=== PATIENT | male | born 1980 | race Two or more races ===

== ENCOUNTER 2021-12-19 12:47 | Inpatient (IN) | payer MEDICAID ==
[2021-12-19] VITALS (9 sets, daily range): BP systolic 130–162; BP diastolic 66–99
[~2021-12-19] VITALS: Ht 165.1 cm; Wt 70.8 kg
--- NOTE | 2021-12-19 13:05 | NUR ---
RECEIVED PT CAME FROM HOME ACCOMMPANY BY KRZYSZTOF C/O PAIN ON lt shoulder for 1 day dineses H FALL
--- NOTE | 2021-12-19 13:23 | NUR ---
BLOOD DROW BY LAB TAC
[2021-12-19 13:38] LABS: BASOPHILS % (AUTO) 0.1 % (0.0-2.0); HEMOGLOBIN 15.2 g/dL (13.5-17.5); MEAN CORPUSCULAR HGB CONC 33 g/dl (31.0-36.0); NEUTROPHILS # (AUTO) 10.7 K/uL (1.8-8.9)
[2021-12-19 13:48] LABS: CARBON DIOXIDE 29 mmol/L (21-32); CHLORIDE 103 mmol/L (98-107); CREATININE 0.9 mg/dL (0.6-1.3); GLUCOSE 89 mg/dL (74-106); POTASSIUM 4.4 mmol/L (3.5-5.1); SODIUM SERUM 138 mmol/L (136-145); UREA NITROGEN, BLOOD 24 mg/dL (7-18)
--- NOTE | 2021-12-19 13:48 | NUR ---
CERTIFIED TECHNICIAN STATED THAT PT IS NEGATIVE FOR CLOT
[2021-12-19 13:50] LABS: SERUM AMMONIA 22 umol/L (11-32)
[2021-12-19] MEDS ORDERED: KETOROLAC TROMETHAMINE 15 MG/ML VIAL ONE (13:53)
[2021-12-19 13:54] LABS: ALANINE AMINOTRANSFERASE 148 U/L (12-78); ALCOHOL, BLOOD < 3 mg/dL (0-0); ALKALINE PHOSPHATASE 54 U/L (46-116); ASPARTATE AMINOTRANSFERASE 335 U/L (15-37); BILIRUBIN,DIRECT 0.1 mg/dL (0.0-0.2); BILIRUBIN,TOTAL 0.6 mg/dL (0.2-1.0); TOTAL PROTEIN, SERUM 7.8 g/dL (6.4-8.2)
[2021-12-19] MEDS ORDERED: KETOROLAC TROMETHAMINE INJ 30 MG/ML VIAL IM ONE (14:00)
--- NOTE | 2021-12-19 14:00 | NUR ---
TO CT SCAN VIA SOPHIA
[2021-12-19 14:01] LABS: ALBUMIN 3.5 g/dL (3.4-5.0)
[2021-12-19 14:16] LABS: EOSINOPHILS % (AUTO) 0.3 % (0.0-6.0); HEMATOCRIT 47 % (39-51); LYMPHOCYTES # (AUTO) 1.1 K/uL (0.8-4.8); LYMPHOCYTES % (AUTO) 8.2 % (20.0-44.0); MEAN CORPUSCULAR VOLUME 90 fL (80-96); MONOCYTES # (AUTO) 1.3 K/uL (0.1-1.30); MONOCYTES % (AUTO) 9.7 % (2.0-12.0); NEUTROPHILS % (AUTO) 81.7 % (43.0-81.0); PLATELET COUNT (AUTO) 256 K/uL (150-450); RED BLOOD CELL COUNT(AUTO) 5.19 MIL/uL (4.5-6.0); WHITE BLOOD COUNT (AUTO) 13.1 K/uL (4.3-11.0)
[2021-12-19 14:25] LABS: THYROID STIMULATING HORMONE 2.063 uIU/mL (0.358-3.74)
[2021-12-19] MEDS ORDERED: IV NS 0.9% 1,000 ML IV ONE (14:30)
--- NOTE | 2021-12-19 14:45 | NUR ---
[facility] CALLED PUBLIC INFORMATION OFFICER PAGED.
--- NOTE | 2021-12-19 15:54 | NUR ---
SWAB FOR COVID19 SENT TO LAB
--- NOTE | 2021-12-19 16:00 | NUR ---
HOSPITALIST AT BED SIDE SEE AND EXAMIN PT
--- NOTE | 2021-12-19 16:03 | NUR ---
Silvano lafleur in FRIEDA - 12/19/21 at 1604 by KARELY MATT MCDONNELL DONE SENT TO LAB
--- NOTE | 2021-12-19 16:40 | NUR ---
ROOM 323-2
--- NOTE | 2021-12-19 17:10 | NUR ---
PT ABLE SWALLOW NO NURO DIFFISITY NO WEEKNESS
--- NOTE | 2021-12-19 18:23 | NUR ---
HAND OFF REYES JAY RN TO ROOM 323-2
[2021-12-19] MEDS ORDERED: ONDANSETRON HCL/PF 4 MG/2 ML VIAL IVP PRN (18:30)
[2021-12-19] MEDS ORDERED: Z GUARD REMEDY 4 OZ OINT TP PRN (18:30)
[2021-12-19] MEDS ORDERED: MAG HYDROX/AL HYDROX/SIMETH 30 ML UDC PO PRN (18:30)
[2021-12-19] MEDS ORDERED: MAGNESIUM HYDROXIDE 30 ML UDC PO PRN (18:30)
[2021-12-19] MEDS ORDERED: ACETAMINOPHEN 325 MG TABLET PO PRN (18:30)
[2021-12-19] MEDS ORDERED: ZOLPIDEM TARTRATE 5 MG TABLET PO PRN (18:30)
--- NOTE | 2021-12-19 19:20 | NUR ---
RN NOTE PATIENT RECEIVED FROM ER VIA GURNEY ACCOMPANIED BY 2 NURSES, REPORT GIVEN BY PRISCILLA. PATIENT TRNASFERRED TO BED AND COMFORT MEASURES PROVIDED. PATIENT IS ALERT AND ORIENTED X 3. WITH SOME TREMORS/SHAKING NOTED. PATIENT ON ROOM AIR SATURATING AT 99% WITH NO SIGNS OF RESPIRATORY DISTRESS. PATIENT NOTED TO HAVE ORDER FOR TRANSFER TO ICU. FACILITATED IMMEDIATE TRANSFER VIA BED ACOOMPANIED BY 3 NURSES. KEPT ON OXYGEN AT 3LPM DURING TRANSFER. REPORT GIVEN TO RN BORIS AND CLAUDIO. NO APPARENT DISTRESS NOTED DURING TRANSFER. ENDORSED ACCORDINGLY.
--- NOTE | 2021-12-19 19:20 | NUR ---
ICU/UNIVERSITY SERVICES PROGRAM ASSOCIATE PT CAME FROM [facility] FOR CLOSE MONITORING.PT WAS AN ADMIT TO @5280
[2021-12-19] MEDS: IV 1/2NS 1000 ML 1,000 ML IV PRN ×2 (20:00→22:58)
--- NOTE | 2021-12-19 20:15 | NUR ---
ICU/FILING OR REGISTRY CLERK NOTICED PT HAS SOME SLURRED SPEECH, ALSO RIGHT EYE IS SLIGHTLY DILATED AND SLUGGISH THAN THE LEFT EYE WHICH IS BRISK.
--- NOTE | 2021-12-19 21:30 | NUR ---
ICU/WOMEN'S MINISTRY DIRECTOR CHARGE NURSE GOT ORDER FOR NORCO BECAUSE PT COMPLAINED OF RIGHT LOWER BACK PAIN. THIS WAS GIVEN TO HIM, WHICH IS RATED AT 7/10
[2021-12-19] MEDS: HYDROCODONE/APAP 10/325MG TABLET PO PRN (21:47)
--- NOTE | 2021-12-19 22:30 | NUR ---
ICU/WETLAND SCIENTIST PT'S FRIEND CAME IN ASKING TO SEE PT'S LABS, EXPLAINED THAT UNABLE SHOW EVERYTHING. THAT SHE WOULD HAVE TO GO TO MEDICAL RECORDS. THEN PT'S FRIEND SAID TO REMOVE LEFT IJ AND PUT THIS SOMEWHERE ELSE. IT WAS EXPLAINED THAT UNABLE TO DO THIS BECAUSE PT HAS BAD VEINS. THEN PT'S FRIEND SAID THAT PT NEEDS TO EAT, EXPLAINED UNABLE TO DO THIS SINCE PT IS SLEEPY AND THERE IS A REAL POSSIBILITY OF ASPIRATION. THIS PERSON WAS ALSO INFORMED SHE COULD NOT STAY OVER NIGHT, SHE SAID WHY NOT SINCE THIS IS ICU. SHE WAS TOLD WHEN VISITING HOURS ARE.
[2021-12-20] VITALS (37 sets, daily range): BP systolic 116–163; BP diastolic 71–113
[2021-12-20] MEDS: IV 1/2NS 1000 ML 1,000 ML IV PRN ×2 (03:51→14:36)
--- NOTE | 2021-12-20 04:30 | NUR ---
ICU/ACTUARIAL DIRECTOR PT COMPLAINED OF RIGHT LOWER BACK PAIN. GAVE NORCO 1 TAB . PAIN RATED 7/10
[2021-12-20] MEDS: HYDROCODONE/APAP 10/325MG TABLET PO PRN ×3 (04:35→20:45)
[2021-12-20 04:43] LABS: BASOPHILS % (AUTO) 0.3 % (0.0-2.0); EOSINOPHILS % (AUTO) 0.7 % (0.0-6.0); HEMATOCRIT 43 % (39-51); HEMOGLOBIN 14.5 g/dL (13.5-17.5); LYMPHOCYTES # (AUTO) 0.9 K/uL (0.8-4.8); LYMPHOCYTES % (AUTO) 8.5 % (20.0-44.0); MEAN CORPUSCULAR HGB CONC 34 g/dl (31.0-36.0); MEAN CORPUSCULAR VOLUME 89 fL (80-96); MONOCYTES % (AUTO) 9.5 % (2.0-12.0); PLATELET COUNT (AUTO) 254 K/uL (150-450); RED BLOOD CELL COUNT(AUTO) 4.88 MIL/uL (4.5-6.0); WHITE BLOOD COUNT (AUTO) 11.1 K/uL (4.3-11.0)
[2021-12-20 05:00] LABS: ALBUMIN 2.9 g/dL (3.4-5.0); BILIRUBIN,DIRECT 0.2 mg/dL (0.0-0.2); BILIRUBIN,TOTAL 0.7 mg/dL (0.2-1.0); CALCIUM, SERUM 8.4 mg/dL (8.5-10.1); CREATININE 0.9 mg/dL (0.6-1.3); PHOSPHORUS 2.7 mg/dL (2.5-4.9); POTASSIUM 4.5 mmol/L (3.5-5.1); TOTAL PROTEIN, SERUM 6.7 g/dL (6.4-8.2)
--- NOTE | 2021-12-20 07:20 | NUR ---
RN OPENING NOTES: DISTRICT PLANT SUPERINTENDENT OPENING NOTE: RECEIVED PT. IN BED, ASLEEP BUT EASILY AROUSABL, AOX3-4, NO COMPLAINTS OF PAIN/DISCOMFORT AT THIS TIME. PT. O2 VIA NASAL CANULA 2L/MIN. SATURATING AT 98% AT THIS TIME. GEAR NICKER READS NSR WITH HR OF 98 BPM. PT. IV ACCESS ON LEFT IJ, GAUGE 18 ON 03/16 NS RUNNING AT 125 ML/HR, AND RIGHT WRIST GAUGE 20.PATENT WITH NO S/S OF INFILTRATION. IV DRESSING C/D/I. SAFETY MEASURES IN PLACE: BED IN LOWEST AND LOCKED POSITION, HOB ELEVATED AT 30 DEGREES, BED ALARM ON, CALL LIGHT WITHIN REACH. WILL CONTINUE TO MONITOR PT. FOR RICKIE
[2021-12-20] MEDS: PANTOPRAZOLE 40 MG TABLET.DR PO SCH (07:47)
--- NOTE | 2021-12-20 07:55 | NUR ---
RN NOTES: ASSISTED PT TO EAT HIS BREAKFAST CONSUMED 90% OF HIS TRAY WITHOUT ANY PROBLEMS SWALLOWING HIS FOOD
[2021-12-20] MEDS: NICOTINE PATCH (21MG) 21 MG PATCH.TD24 TD SCH (08:32)
--- NOTE | 2021-12-20 10:18 | NUR ---
RN NOTES: PT TRANSFERRED FROM [facility], WITH RN RAFFY PT ASLEEP N SIMPLE MASK , OXYGEN 8LPM, O2 SAT 93%, BP 103/45,PULSE 83,RR 18 WILL MONITOR
[2021-12-20] MEDS ORDERED: GADOTERATE MEGLUMINE 10 MMOL/20 ML VIAL IV ONE (17:37)
--- NOTE | 2021-12-20 19:22 | NUR ---
BROADCAST PROGRAM DIRECTOR CLOSING NOTES: BROADCAST PROGRAM DIRECTOR CLOSING NOTE: PT. REMAINS IN BED, AWAKE, AOX3, NO COMPLAINTS OF PAIN/DISCOMFORT AT THIS TIME. NOW ON HIFLO 02 VIA NASAL CANNULA WITH 2 L/MIN . TOLERATING WELL. SATURATING AT 97% AT THIS TIME. PT.PRECISION INSTRUMENT MAKER AND REPAIRER READS NSR WITH HR OF 92 BPM. PT VOIDEDX 4 USING URINAL X,3 NORMAL BOWEL MOVEMENT USING HIS BEDSIDE COMMODE THIS SHIFT. IV ACCESS ON R WRIST MIDLINE, ON TKO, PATENT WITH NO S/S OF INFILTRATION. IV DRESSING C/D/I. SAFETY MEASURES MAINTAINED: BED IN LOWEST AND LOCKED POSITION, HOB ELEVATED AT 30 DEGREES, BED ALARM ON, CALL LIGHT WITHIN REACH. NDORSED CONTINUITY OF CARE TO INSULATION CUPOLA OPERATOR RN.
--- NOTE | 2021-12-20 21:15 | NUR ---
ICU/CASE OPERATOR PT COMPLAINED OF RIGHT LOWER BACK PAIN. GAVE NORCO 1 TAB . PAIN RATED 8/10. WILL MONITOR THIS PT AND HIS PAIN. CALL LIGHT WITHIN REACH.
--- NOTE | 2021-12-20 23:31 | NUR ---
ICU/OPERATIONS SUPERVISOR 2ND SHIFT SOCIAL SERVICE IS PLACED FOR THIS PT. 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 SOCIAL SERVICE CONSULT PLACED FOR THIS PT BECAUSE PT WOULD LIKE DRUG REHAB AND POSSIBLE BE HOMELESS IF PT CAN NOT FIND WORK.
[2021-12-21] VITALS (19 sets, daily range): BP systolic 114–159; BP diastolic 51–100
--- NOTE | 2021-12-21 02:15 | NUR ---
ICU/VEHICLE BODY BUILDER PT REQUESTED TO HAVE PAIN MEDICATION HOWEVER IT'S NOT DUE UNTIL 0300. ALSO NOTICED THAT IV IS BEEPING, IV SITE IS LEAKING, FLUSHED THIS AND PT WAS UPSET. LET CHARGE NURSE KNOW THAT IV IS NOT GOOD.
[2021-12-21 04:17] LABS: BASOPHILS % (AUTO) 0.2 % (0.0-2.0); EOSINOPHILS % (AUTO) 1.9 % (0.0-6.0); HEMATOCRIT 46 % (39-51); HEMOGLOBIN 15.3 g/dL (13.5-17.5); LYMPHOCYTES # (AUTO) 0.9 K/uL (0.8-4.8); LYMPHOCYTES % (AUTO) 10.6 % (20.0-44.0); MEAN CORPUSCULAR HGB CONC 33 g/dl (31.0-36.0); MEAN CORPUSCULAR VOLUME 89 fL (80-96); MONOCYTES # (AUTO) 0.8 K/uL (0.1-1.30); MONOCYTES % (AUTO) 9.5 % (2.0-12.0); NEUTROPHILS # (AUTO) 6.5 K/uL (1.8-8.9); NEUTROPHILS % (AUTO) 77.8 % (43.0-81.0); PLATELET COUNT (AUTO) 287 K/uL (150-450); RED BLOOD CELL COUNT(AUTO) 5.18 MIL/uL (4.5-6.0); WHITE BLOOD COUNT (AUTO) 8.4 K/uL (4.3-11.0)
[2021-12-21 04:35] LABS: CREATININE 0.8 mg/dL (0.6-1.3); MAGNESIUM 1.8 mg/dL (1.8-2.4); POTASSIUM 3.8 mmol/L (3.5-5.1)
[2021-12-21] MEDS: HYDROCODONE/APAP 10/325MG TABLET PO PRN ×3 (04:36→20:19)
[2021-12-21 04:41] LABS: ALBUMIN 2.8 g/dL (3.4-5.0); BILIRUBIN,DIRECT 0.1 mg/dL (0.0-0.2); BILIRUBIN,TOTAL 0.3 mg/dL (0.2-1.0); TOTAL PROTEIN, SERUM 6.6 g/dL (6.4-8.2)
--- NOTE | 2021-12-21 04:45 | NUR ---
ICU/BULLET SLUGS INSPECTOR PT COMPLAINED OF RIGHT LOWER BACK PAIN. GAVE NORCO 1 TAB . PAIN RATED 7/10. WILL MONITOR THIS PT AND HIS PAIN. CALL LIGHT WITHIN REACH.
[2021-12-21] MEDS: NICOTINE PATCH (21MG) 21 MG PATCH.TD24 TD SCH (08:19)
[2021-12-21] MEDS: PANTOPRAZOLE 40 MG TABLET.DR PO SCH (08:19)
--- NOTE | 2021-12-21 13:52 | NUR ---
RELAYED TO DR. GARNETT CRITICAL TROPONIN [id number]. NO NEW ORDER AT THIS TIME.
--- NOTE | 2021-12-21 15:00 | NUR ---
RN NOTE PATIENT WAS TRANSFERRED TO UNIT FROM ICU VIA GURNEY WITH NO SIGN OF DISTRESS. REPORT RECEIVED FORM ICU NURSE. V/S TAKEN, STABLE, RECORDED. PATIENT WAS ORIENTED TO ROOM SETUP AND EDUCATED ON THE USE OF THE CALL LIGHT. PATIENT AWAKE IN BED RESTING. A/O X4. NO PAIN NOTED AT THIS TIME. ON ROOM AIR, NO DISTRESS OR SHORTNESS OF BREATH NOTED. IV ACCESS ALICIA MIDLINE INTACT, PATENT AND FLUSHING WELL, 1/2 NS @ 125ML/HR. PATIENT WITH EXTERNAL FERN PICKER WITH CURRENT READING OF SR AND HR OF 90, NO CARDIAC DISTRESS NOTED. FALL AND SAFETY MEASURES IN PLACE, BED ALARM ON, BED IN LOW AND LOCK POSITION, CALL LIGHT AND TABLE WITHIN EASY REACH, SIDE RAILS UP X2. WILL CONTINUE TO MONITOR.
--- NOTE | 2021-12-21 15:45 | NUR ---
EKG DONE AND RESULTED; NORMAL EKG ;CHARGE NURSE AWARE.
--- NOTE | 2021-12-21 16:32 | NUR ---
PATIENT WAS TRANSFERRED TO [facility] 326 PER ORDER/PROTOCOL; STABLE CONDITION, VS FOLLOWS: HR 97 RR 16 99%O2SAT BP 136/78
--- NOTE | 2021-12-21 18:47 | NUR ---
RN CLOSING NOTE PATIENT AWAKE IN BED RESTING. A/O X4. NO PAIN NOTED AT THIS TIME. ON ROOM AIR, NO DISTRESS OR SHORTNESS OF BREATH NOTED. IV ACCESS ALICIA MIDLINE INTACT, PATENT AND FLUSHING WELL, 1/2 NS @ 125ML/HR. PATIENT WITH EXTERNAL SQL REPORT WRITER WITH CURRENT READING OF SR AND HR OF 88, NO CARDIAC DISTRESS NOTED. FALL AND SAFETY MEASURES IN PLACE, BED ALARM ON, BED IN LOW AND LOCK POSITION, CALL LIGHT AND TABLE WITHIN EASY REACH, SIDE RAILS UP X2. WILL ENDORSE TO LEGAL RESEARCH ANALYST.
--- NOTE | 2021-12-21 19:30 | NUR ---
STAFF NURSE OPENING NOTES RECEIVED PATIENT LYING IN BED AWAKE. A/O X3, SOME WORDS SOUND GARBLED WHEN PATIENT SPEAKS. BREATHING EVEN AND NON-LABORED ON ROOM AIR, SATURATING AT 100%. NOT IN APPARENT DISTRESS. C/O LEFT SHOULDER AND RIGHT LOWER BACK PAIN -09/21. HAS RIGHT WRIST IV ACCESS #20G, SALINE LOCKED AND LEFT UPPER ARM MIDLINE #18G WITH 1/2 NS RUNNING AT 125 ML/HR. NO S/S OF INFILTRATION NOTED. SAFETY MEASURES IN PLACE: BED LOCKED AND IN LOWEST POSITION, SIDE RAILS UP X2, CALL LIGHT WITHIN REACH. WILL CONTINUE POC. Addendum: 12/21/21 at 2211 by August KAROLINE BAER ON TELE MONITOR READING SINUS RHYTHM WITH BBB AT 82 BPM.
--- NOTE | 2021-12-21 20:05 | NUR ---
TRUST ADVISOR NOTES RECEIVED CALL FROM LAB, TROPONIN RESULT IS 121. ADALBERTO SUB ARC OPERATOR AWARE, NO NEW ORDER.
[2021-12-21] MEDS: LEVETIRACETAM SOL (5 ML) 100 MG/ML UDC PO SCH (20:17)
[2021-12-22] VITALS: BP 139/85
[2021-12-22] MEDS: HYDROCODONE/APAP 10/325MG TABLET PO PRN ×2 (02:19→08:36)
--- NOTE | 2021-12-22 02:35 | NUR ---
CHAIR AND COUCH MAKER NOTES PATIENT C/O LEFT SHOULDER PAIN. ADMINISTER PRN NORCO. WILL CONTINUE PAIN MANAGEMENT.
[2021-12-22 04:00] VITALS: BP 121/73
[2021-12-22] MEDS: IV 1/2NS 1000 ML 1,000 ML IV PRN (04:57)
[2021-12-22 06:14] LABS: BASOPHILS % (AUTO) 0.3 % (0.0-2.0); EOSINOPHILS % (AUTO) 1.3 % (0.0-6.0); HEMATOCRIT 45 % (39-51); HEMOGLOBIN 15.4 g/dL (13.5-17.5); LYMPHOCYTES # (AUTO) 1.1 K/uL (0.8-4.8); LYMPHOCYTES % (AUTO) 10.4 % (20.0-44.0); MEAN CORPUSCULAR HGB CONC 34 g/dl (31.0-36.0); MEAN CORPUSCULAR VOLUME 88 fL (80-96); MONOCYTES # (AUTO) 1.2 K/uL (0.1-1.30); MONOCYTES % (AUTO) 10.8 % (2.0-12.0); NEUTROPHILS # (AUTO) 8.4 K/uL (1.8-8.9); NEUTROPHILS % (AUTO) 77.2 % (43.0-81.0); PLATELET COUNT (AUTO) 303 K/uL (150-450); RED BLOOD CELL COUNT(AUTO) 5.13 MIL/uL (4.5-6.0); WHITE BLOOD COUNT (AUTO) 10.9 K/uL (4.3-11.0)
--- NOTE | 2021-12-22 06:43 | NUR ---
TERMITE RENEWAL INSPECTOR CLOSING NOTES PATIENT LYING IN BED ASLEEP AND EASY TO AROUSE. A/O X3, FORGETFUL AND HAS SLURRED SPEECH. NO SOB OR NOTED, TOLERATING ROOM AIR WELL. AFEBRILE. DENIES PAIN AT THIS TIME. ON TELE MONITOR READING SINUS RHYTHM AT 81 BPM. HAS RIGHT HAND IV ACCESS #20G WITH 1/2 NS RUNNING AT 125 ML/HR. INTACT, PATENT AND FLUSHING. ALL DUE MEDS GIVEN AND NEEDS ATTENDED. SAFETY MEASURES MAINTAINED. WILL ENDORSE TO NEXT SHIFT FOR RICKIE.
[2021-12-22 06:56] LABS: CALCIUM, SERUM 9.1 mg/dL (8.5-10.1); CREATININE 0.8 mg/dL (0.6-1.3); MAGNESIUM 1.7 mg/dL (1.8-2.4); PHOSPHORUS 3.4 mg/dL (2.5-4.9); POTASSIUM 3.8 mmol/L (3.5-5.1)
[2021-12-22 07:14] LABS: ALBUMIN 2.9 g/dL (3.4-5.0); BILIRUBIN,DIRECT 0.1 mg/dL (0.0-0.2); BILIRUBIN,TOTAL 0.5 mg/dL (0.2-1.0); TOTAL PROTEIN, SERUM 6.9 g/dL (6.4-8.2)
[2021-12-22 08:00] VITALS: BP 131/73
--- NOTE | 2021-12-22 08:00 | NUR ---
FUNDRAISER OPENING NOTES: RECEIVED PT IN BED, ASLEEP BUT EASILY AWAKEN. A/O X3, ABLE TO MAKE NEEDS KNOWN BUT FORGETFUL AND HAS SLURRED SPEECH. NO S/S OF SOB NOTED, TOLERATING ROOM AIR WELL. DENIES PAIN AT THIS TIME. ON TELE MONITOR READING SINUS RHYTHM AT 93 BPM. HAS RIGHT HAND IV ACCESS #20G WITH 1/2 NS RUNNING AT 125 ML/HR. INTACT, PATENT AND FLUSHING. SAFETY MEASURES MAINTAINED, HOB ELEVATED, LOCKED AT LOWEST POSITION, SIDE RAILS X2, CALL LIGHT AND TABLE WITHIN REACH; WILL CONT WITH PLAN OF CARE DURING SHIFT.
[2021-12-22] MEDS: NICOTINE PATCH (21MG) 21 MG PATCH.TD24 TD SCH ×2 (08:36→09:00)
[2021-12-22] MEDS: LEVETIRACETAM SOL (5 ML) 100 MG/ML UDC PO SCH (08:36)
[2021-12-22] MEDS: PANTOPRAZOLE 40 MG TABLET.DR PO SCH (08:41)
[2021-12-22] MEDS ORDERED: ASPIRIN 81 MG TAB.CHEW PO SCH (09:00)
[2021-12-22] MEDS: Magnesium 1GM/D5W 100ML PREMIX 100 ML IV SCH ×2 (09:17→10:20)
[2021-12-22 10:12] LABS: CHOLESTEROL 134 mg/dL (<200); HDL CHOLESTEROL 43 mg/dL (40-60); LDL 79 mg/dL (0-99); TRIGLYCERIDES 78 mg/dL (30-150)
[2021-12-22 12:00] VITALS: BP 131/80
--- NOTE | 2021-12-22 12:40 | NUR ---
Dining Host Consult LORNE consult requested for support with disability application and resources. Pt. is a 41 y.o. male who was admitted for subarachnoid rhabdo. LORNE met with pt. at bedside. The pt. appeared alert and oriented x4. Pt. made eye contact and was engaged during assessment. The pt. had a depressed mood and flat affect. SW assessed for suicidal and homicidal ideation in which pt. denied plan, means,and intent. During assessment, pt stated he was living in a motel and did have money to pay for it and was requesting homelessness support. Pt. reported he was going to be picked up by his friend and was going to go home with him. Pt. is not independent ambulation but has a walker for assistance. Pt is not receiving financial assistance but inquired re [employer]. Pt. was requesting support with disability application. DC plan: When asked about pt.s plans after being discharged pt. stated he did not have a place to stay. LORNE offered skilled nursing placement in which pt. was agreeable. LORNE provided pt. with instructions on how to apply for disability insurance and calfresh, homeless resources and mental health resources which pt. accepted. LORNE provided pt. with a TAP card and directions to [facility] ([address] [place] [address], TEL: ) Pt. signed the homeless waiver and was placed in his chart. LORNE discussed discharge plan with nurse and she was agreeable. Checklist for Online Adult Disability Application The information below will help you gather the information you may need to create a [employer] Social Security account and complete the online Disability application. We recommend you print this page to use while gathering your information. Create a [employer] Social Security Account You are required to login to your existing [employer] Social Security account, or attempt to create one. To create an account, we will ask you a series of identity questions for verification. You may want to have certain items on hand to be prepared for additional security questions, such as, but not limited to: mobile phone (for the purpose of receiving texts and emails), credit card, W-2, and tax forms. File for Benefits Online The Information You Need Date and Place of If you were born outside the [place] or its territories: Name of your country at the time of your (it may have a different name now) Permanent Resident Card number (if you are not a U.S[place] citizen) Marriage and Divorce Name of current spouse, name of prior spouse (if the marriage lasted more than 10 years or ended in ) Spouse(s) date of and Social Security number (optional) Beginning and ending dates of marriage(s), place of marriage(s) (city, state or country, if outside the [place] Names and Dates of of Children Who: Became disabled prior to age 22, or Are under age 18 and are unmarried, or Are aged 18 to 19 and still attending secondary school real time analyst [place]. Service Type of duty and branch, service period dates Employer Details for Current Year and Prior 2 Years (not self-employment) View your Social Security Statement online at [email or web address] Employer name, employment start and end dates, total earnings (wages, tips, etc.) Self-Employment Details for Current Year and Prior 2 Years View your Social Security Statement online at [email or web address] Business type and total net income Direct Deposit Domestic bank ([place]) Account type and number Bank routing number Direct Deposit International bank (non-USA) International Direct Deposit (IDD) bank country Bank name, bank code, and currency Account type and number, branch/transit number Alternate Contact Name, address, and phone number of someone we can contact who knows about your medical condition(s) and can help you with your claim List of your Medical Conditions Information About Doctors, Healthcare Professionals, Hospitals, and Clinics Names, addresses, phone numbers, patient ID numbers, and dates of examinations and treatments Names and dates of medical tests you have had and who sent you for them Names of medications (prescriptions and non-prescriptions), reason for medication, and who prescribed them Information About Other Medical Records Vocational rehabilitation services, workers compensation, public welfare, group home/intermediate, an attorney lawyer, or another place Job History Date your medical condition began to affect your ability to work Type of jobs (up to 5) that you had in the 15 years before you became unable to work because of your condition Type of duties you did on the longest job you had Education and Training Highest grade in school completed (date), and any special education (school name, city, and state) Name of special job training, trade school, or vocational school and date completed Apply With Your Local Office You can do most of your business with Social Security online. If you cannot use these online services, your local Social Security office can help you apply. You can find the phone number for your local office by using our Office Farmworker [employer] and looking under Social Security Office Information. The toll-free Office number is your local office. Apply By Phone Call (TTY ) from 8:00 a.m. to 7:00 p.m., Wednesday through Wednesday, to apply by phone. If You Do Not Live in the [place] Or One of Its Territories Contact the Federal Benefits Unit for your country of residence if you live outside the [place] or a [place] territory and wish to apply for shelter benefits. Mailing Your Documents If you mail any documents to us, you must include the Social Security number so that we can match them with the correct application. Do not write anything on the original documents. Please write the Social Security number on a separate sheet of paper and include it in the mailing envelope along with the documents. Year-round shelters: [place] [address] [place] [address] ; [facility] [address] [place] [address]; [place] [facility] [id number] [facility]. [facility] [address] Hygiene: [facility]: [address] [place] ; [facility] [address] [facility] ; [facility] [address] [place] . Food Resources: [place] [facility] at [facility]- [address] [place]; Meet Each Need with Dignity ([facility]) [address] [place]; [facility] [address] [facility]; [facility] [address] [place] [place]. Mental Health resources provided: [facility] [address] [place] [address] ; [facility] [place] [address], [place] [address] ; [place] [facility] [address] [place] [address] ; [facility] [address] [place], [place] [phone] Healthcare Clinics: [facility] [address] [facility], [address] [place]. [place] ; [facility] [address] [facility] [address] [place] [address]; [facility] [address] [facility] [address] [phone] Counseling--Outpatient [facility] [address], [place] [address] (Specializes in in-depth psychotherapy for emotional distress: anxiety, depression, interpersonal conflicts, life transitions, childhood abuse) [facility] [address] [place] [address] (Assist with solving problem marital difficulties, separation & divorce, aging parents, & grief, chronic & terminal illness) [facility] [address] [place] [address] (Deal with loss & grief, anxiety, marital difficulties) Homebound/Mental Health Services [address] [facility], [address] [place] [address] (Provide in-home mental services to people who are incapable of leaving their homes) Organization for Needs of the Elderly Senior Service/Resource Center [address] [place] [address] [facility] [address] [place] [address] PSYCHIATRIC OUTPATIENT SERVICES [facility] Partial Hospitalization and Intensive Outpatient Program (Managed Care and [place] Only)[address] [place] [address]. [facility] [phone] [facility] Partial Hospitalization and Outpatient [id number] [facility]. [address] [place], [place] [phone] JERICHO HOLLAND [facility] [place] [id number] [facility]. [address] [place], [place] [phone] [facility] Partial Hospitalization and Outpatient [id number] [place], [phone] Substance Abuse resources provided included: [facility] Substance Abuse Self-Helpline ([facility]) ; CRI -HELP [address] [facility] [place]. [place] [address] ; [facility] [address] [facility] [address] ; [facility] Rehabilitation Program [address] [facility] [place] [phone] ; [facility] [address] [address] [facility] [phone] ; [facility] [address] [facility] [address] ; [facility] 9[address] [facility] [phone] ; [facility] Substance Abuse Helpline([facility] ; [facility] ; [facility] [place]; [facility]; [facility] [place]; [facility]; [facility]; [place]; [facility] [place] [place]; Alcoholics Anonymous -SFV; Rt-Pyaa-Elszxux ; Marijuana Anonymous -SFV; Narcotics Anonymous www.na.org;
[2021-12-22] MEDS ORDERED: LEVE250T2 PO (13:06)
[2021-12-22] MEDS ORDERED: ASPI-1169 PO (13:06)
[2021-12-22] MEDS ORDERED: NICO-762 TD (13:06)
--- NOTE | 2021-12-22 15:28 | NUR ---
ERP DEVELOPERNUCLEAR POWERPLANT SUPERVISOR NOTES: PT STABLE AT DC, VITALS WNL- BP: 135/87; HR: 79, TEMP ;98.3, RR, 20 Addendum: 12/22/21 at 1538 by ERNIE CANNON RN 02 SAT @ 199% ON RA. IV ACCESS AND ID BAND REMOVED. DC INSTRUCTIONS, NEW MEDICATIONS, AND BELONGINGS DISCUSSED AND SIGNED BY PATIENT. HOSPITAL DOCUMENTS GIVEN TO PT, JESICA ORDERED AND GIVEN TO PT TO TAKE HOME. SPRAY CREW AND CM DISCUSSED MEDICAL/HOUSING RESOURCES WITH PT, AND GIVEN TAP CARD. PT STATES BROTHER IN LAW WILL PICK HIM UP. PT WALKED USING JESICA TO ANTHONY ACCOMPANIED BY RN @ 1530 Addendum: 12/22/21 at 1556 by ERNIE CANNON RN TELE BOX REMOVED MY ENTERPRISE SALES PERSON
[2021-12-22] MEDS ORDERED: LEVETIRACETAM (250 MG) 250 MG TABLET PO SCH (21:00)
== END 2021-12-22 15:00 | disposition home or self-care (01) | DRG 44 ==
LOC: ER 12:55 → TELE 17:51 → ICU 19:15 → MED 12-21 16:32 → TELE 12-21 20:16
PROVIDERS: ADMIT Student in an Organized Health Care Education/Training Program; ATTEND Student in an Organized Health Care Education/Training Program
PROC: 05HY33Z Insertion of Infusion Device into Upper Vein, Percutaneous Approach (ICD-10-PCS; principal; 2021-12-21)
DX: I61.4 Nontraumatic intracerebral hemorrhage in cerebellum (principal); M62.82 Rhabdomyolysis; E88.09 Other disorders of plasma-protein metabolism, not elsewhere classified; E86.0 Dehydration; Z20.822 Contact with and (suspected) exposure to COVID-19; F10.10 Alcohol abuse, uncomplicated; Y90.0 Blood alcohol level of less than 20 mg/100 ml; D72.829 Elevated white blood cell count, unspecified; R74.01 Elevation of levels of liver transaminase levels; R79.89 Other specified abnormal findings of blood chemistry; F14.90 Cocaine use, unspecified, uncomplicated; Z72.0 Tobacco use; E83.42 Hypomagnesemia; Z86.73 Personal history of transient ischemic attack (TIA), and cerebral infarction without residual deficits
CPT/HCPCS: 36415; 70450-TC; 70553-TC; 71045-TC; 72125-TC; 73030-TC; 80048-TC; 80061-TC; 80076-TC; 82140-TC; 82550-TC; 82553; 83735-TC; 84100-TC; 84443-TC; 84484-TC; 85025-TC; 85730-TC; 87081-TC; 93307-TC; 93971-TC; 94799-TC; 97112-TC; 97116-TC; 97530-TC; A9575; C9803; G0378; G0480; J1885; J1953; J3475; J3490; J7030